=== PATIENT | male | born 1975 ===

== ENCOUNTER → 2023-03-04 15:37 | Outpatient (CLI) | payer OTHER, SELFPAY ==
--- NOTE | ~2023-03-04 | CT_ITS ---
CT Scan of the Chest without Contrast: Clinical Indication: Lung cancer screening, personal history of nicotine dependence Technique: Contiguous sections were acquired throughout the chest without intravenous contrast. Dose reduction technique was used on this scan by utilizing automated exposure control and iterative recon struction technique. The dose-length product (DLP) was 141.47 mGy-cm. Findings: There is no evidence of any significant mediastinal, hilar or axillary lymphadenopathy. Coronary kendrick ry calcifications are present. There is no evidence of pleural or pericardial effusion. Calcified right upper lobe granuloma present. Images through the upper abdomen reveal diffuse fatty infiltration of the liver. Impression: Lung RADS 2: Benign appearance. 12 month follow-up screening CT advised. Reviewed, dictated and finalized at location . ETISER OPERATOR Impression: Lung RADS 2: Benign appearance. 12 month follow-up screening CT advised.
== END ==
PROVIDERS: PCP Nurse Practitioner Family; Visit Provider Nurse Practitioner Family
DX: Z12.2 Encounter for screening for malignant neoplasm of respiratory organs (principal); F17.210 Nicotine dependence, cigarettes, uncomplicated
CPT/HCPCS: 71271